=== PATIENT | female | born 1990 | race Caucasian/White ===

== ENCOUNTER 2018-03-11 12:50 | Inpatient (IN) | payer SELFPAY ==
[2018-03-11 14:08] VITALS: BMI 21.2
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
[2018-03-11] MEDS ORDERED: MAGNESIUM HYDROX 2400MG/30ML ORAL SUSPENSION 30 ML CUP PO PRN (15:08)
[2018-03-11] MEDS ORDERED: LOPERAMIDE HCL 2 MG CAPSULE PO PRN (15:08)
[2018-03-11] MEDS ORDERED: MENTHOL/PHENOL 1 EACH UD MM PRN (15:08)
[2018-03-11] MEDS ORDERED: P-EPHED 60MG/TRIPROLIDI 2.5MG TABLET PO PRN (15:08)
[2018-03-11] MEDS ORDERED: MAG HYDROX/AL HYDROX/SIMETH 30 ML UNIT-DOSE CUP PO PRN (15:08)
[2018-03-11] MEDS ORDERED: MAGNESIUM CITRATE 300 ML BOTTLE PO PRN (15:08)
[2018-03-11] MEDS ORDERED: ACETAMINOPHEN 325 MG TABLET (FP) PO PRN (15:08)
[2018-03-11] MEDS ORDERED: METHADONE HCL 10 MG TABLET (FOR DETOX USE ONLY) PO ONE ×2 (16:45→23:00)
[2018-03-11] MEDS: diazePAM 5 MG TABLET PO PRN ×2 (17:46→22:18)
[2018-03-11] MEDS: NICOTINE POLACRILEX 2 MG GUM BC PRN (19:06)
[2018-03-11] MEDS: ALBUTEROL SO4 2.5/IPRATROPIUM 0.5 INH SOL 3 ML VIAL.NEB. NEB PRN (20:27)
[2018-03-11] MEDS: THIAMINE HCL 100 MG TABLET (FP) PO SCH (22:17)
[2018-03-11] MEDS: CYCLOBENZAPRINE HCL 10 MG TABLET (FP) PO SCH (22:18)
[2018-03-11] MEDS: NAPROXEN 500 MG TABLET (FP) PO SCH (22:18)
[2018-03-12 00:32] LABS: URINE APPEARANCE SLCLOUDY; URINE BILIRUBIN NEGATIVE (<2.0 mg/dL); URINE COLOR AMBER; URINE GLUCOSE (UA) NEGATIVE (NEGATIVE); URINE KETONE TRACE (NEGATIVE); URINE LEUK ESTERASE NEGATIVE (NEGATIVE); URINE NITRITE NEGATIVE (NEGATIVE); URINE PROTEIN NEGATIVE (NEGATIVE)
[2018-03-12] MEDS: CYCLOBENZAPRINE HCL 10 MG TABLET (FP) PO SCH ×3 (05:30→22:20)
--- NOTE | 2018-03-12 08:37 | CONSULT ---
[facility] Psychiatric Consult - Data Date of interview: 03/12/18 Admission source: [facility] Identifying data: This is a 27 years old female, single, living with friend, unemployed, with no income, with no psychiatric hospitalization history, with history of heroin (nasal), cocaine, nicotine and marijuana dependence is here seeking detox for the first time. Patient reports withdrawal symptoms. Substance Abuse History: Smoking history: Current every day smoker. Have you smoked in the past 12 months: Yes. Aproximately how many cigarettes per day: 10. Hx Chewing Tobacco Use: No. Initiated information on smoking cessation: Yes. 'Breaking Loose' booklet given: 03/11/18. - Substance & Tx. History. Hx Alcohol Use: No. Hx Substance Use: Yes. Substance Use Type: Cocaine, Heroin, Marijuana. Hx Substance Use Treatment: No. - Substances Abused. heroin. Route: Inhalation. Frequency: Daily. Amount used: 1 gram. Age of first use: 26. Date of Last Use: 03/11/18. Cocaine. Route: Inhalation. Frequency: 1- 3 times last 30 days. Amount used: $20. Age of first use: 24. Date of Last Use: 03/09/18. Marijuana/Hashish. Route: Smoking. Frequency: 1-2 times per week. Amount used: $10 Medical History: Weight loss history, LBP, Sinusitis, Migraine Psychiatric History: Patient reports history of depression and anxiety, reports insomnia, reports taking prior to admission. Seroquel 100mg po qhs, denies suicidal, homicidal history, denies psychiatric hospitalization history as well. Physical/Sexual Abuse/Trauma History: Denies Additional Comment: Seroquel 100mg po qhs Mental Status Exam - Mental Status Exam Alert and Oriented to: Person Cognitive Function: Fair Patient Appearance: Unkempt Mood: Hopeful Affect: Mood Congruent Patient Behavior: Cooperative Speech Pattern: Appropriate Voice Loudness: Mildly Soft/Quiet Thought Process: Goal Oriented Thought Disorder: Being Controlled Hallucinations: Denies Suicidal Ideation: Denies Homicidal Ideation: Denies Insight/Judgement: Fair Sleep: Difficulty falling asleep Appetite: Weight loss Muscle strength/Tone: Moderate Hypotonicity Gait/Station: Shuffling Additional Comments: Seroquel 100mg po qhs Psychiatric Findings - Problem List ([place] 1, 2,3) (1) Cocaine dependence Current Visit: Yes Status: Acute Qualifiers: Substance use status: uncomplicated Qualified Code(s): F14.20 - Cocaine dependence, uncomplicated (2) Marijuana dependence Current Visit: Yes Status: Acute (3) Nicotine dependence Current Visit: Yes Status: Acute Qualifiers: Nicotine product type: cigarettes (4) Opioid dependence Current Visit: Yes Status: Acute Qualifiers: Substance use status: uncomplicated Qualified Code(s): F11.20 - Opioid dependence, uncomplicated (5) Weight loss Current Visit: Yes Status: Acute (6) Sciatica associated with disorder of lumbar spine Current Visit: Yes Status: Chronic - Initial Treatment Plan Initial Treatment Plan: Seroquel 100mg po qhs
[2018-03-12] MEDS ORDERED: METHADONE HCL 10 MG TABLET (FOR DETOX USE ONLY) PO ONE (10:00)
[2018-03-12] MEDS: PRENATAL VITAMINS W/ FOLIC ACID TABLET (FP) PO SCH (10:17)
[2018-03-12] MEDS: diazePAM 5 MG TABLET PO PRN ×3 (10:18→22:20)
[2018-03-12] MEDS: NICOTINE 14 MG/24 HOURS TOPICAL PATCH TD SCH (10:18)
[2018-03-12] MEDS: guaiFENesin/D-METHORPHAN HB 10 ML UNIT-DOSE CUPS PO PRN ×2 (10:18→22:27)
[2018-03-12] MEDS: NAPROXEN 500 MG TABLET (FP) PO SCH ×2 (10:18→22:20)
--- NOTE | 2018-03-12 11:29 | PN ---
BHS COWS - Scale Resting Pulse: 1= [place] 81-100 Sweatin=Flushed/Facial Moisture Restless Observation: 1= Difficult to Sit Still Pupil Size: 0= Normal to Room Light Bone or Joint Aches: 2= Severe Diffuse Aches Runny Nose/ Eye Tearin= Runny Nose/Eyes GI Upset > 30mins: 1= Stomach Cramp Tremor Observation of Outstretched Hands: 2= Slight Tremor Visible Yawning Observation: 2= >3x During Session Anxiety or Irritability: 2=Irritable/Anxious Goose Flesh Skin: 0=Smooth Skin COWS Score: 15 BHS Progress Note (SOAP) Subjective: i need my asthma medication sweats shakes irritable agitation body aches Objective: 03/12/18 11:37 Vital Signs Temperature 97.3 F L 03/12/18 09:38 Pulse Rate 95 H 03/12/18 09:38 Respiratory Rate 16 03/12/18 09:38 Blood Pressure 104/63 03/12/18 09:38 O2 Sat by Pulse Oximetry (%) Laboratory Tests 03/11/18 22:52 Urine Color Nicole Urine Appearance Slcloudy Urine pH 5.0 Ur Specific [place] 1.026 Urine Protein Negative Urine Glucose (UA) Negative Urine Ketones Trace H Urine Blood Negative Urine Nitrite Negative Urine Bilirubin Negative Urine Urobilinogen 2.0 H Ur Leukocyte Esterase Negative rest of labs pending aaox3 ambulating no acute distress Assessment: 03/12/18 11:38 withdrawal sx Plan: continue detox increase fluids labs pending
--- NOTE | 2018-03-12 11:29 | EKG ---
Test Reason : Blood Pressure : / mmHG Vent. Rate : 065 BPM Atrial Rate : 065 BPM P-R Int : 144 ms QRS Dur : 080 ms QT Int : 402 ms P-R-T Axes : 073 053 036 degrees QTc Int : 418 ms POOR DATA QUALITY, INTERPRETATION MAY BE ADVERSELY AFFECTED NORMAL SINUS RHYTHM NORMAL ECG NO PREVIOUS ECGS AVAILABLE Confirmed by JESSICA CANALES MD ([id number]) on 03/12/2018 11:29:00 AM Referred By: Confirmed By:JESSICA CANALES MD
[2018-03-12] MEDS: BUDESONIDE/FORMETEROL FUMARATE 160/4.5 mcg INHALER IH SCH ×2 (12:00→22:19)
[2018-03-12 14:19] LABS: HEMATOCRIT 38.7 % (32.4-45.2); HEMOGLOBIN 12.7 GM/dL (10.7-15.3); MCH 28.7 pg (25.7-33.7); MCHC 32.7 g/dl (32.0-36.0); MEAN CELL VOLUME 87.9 fl (80-96); PLATELET COUNT 219 K/MM3 (134-434); RBC 4.41 M/mm3 (3.60-5.2); RDW 13.1 % (11.6-15.6); WHITE BLOOD COUNT 8.8 K/mm3 (4.0-10.0)
[2018-03-12 14:57] LABS: ALBUMIN 3.8 g/dl (3.4-5.0); ALK PHOS 55 U/L (45-117); ANION GAP 7 MMOL/L (8-16); BILIRUBIN,TOTAL 0.6 mg/dL (0.2-1); BLOOD UREA NITROGEN 11 mg/dL (7-18); CALCIUM 8.9 mg/dL (8.5-10.1); CHLORIDE 104 mmol/L (98-107); CO2 28 mmol/L (21-32); CREATININE 0.8 mg/dL (0.55-1.3); GLUCOSE,RANDOM 132 mg/dL (74-106); SGOT/AST 15 U/L (15-37); SGPT/ALT 15 U/L (13-61); SODIUM 139 mmol/L (136-145); TOT PROT 6.5 g/dl (6.4-8.2)
[2018-03-12] MEDS: THIAMINE HCL 100 MG TABLET (FP) PO SCH (22:20)
[2018-03-12] MEDS: QUEtiapine FUMARATE 100 MG TABLET (FP) PO SCH (22:20)
[2018-03-13] MEDS: ALBUTEROL SO4 2.5/IPRATROPIUM 0.5 INH SOL 3 ML VIAL.NEB. NEB PRN (04:04)
[2018-03-13] MEDS: diazePAM 5 MG TABLET PO PRN ×4 (04:24→22:18)
[2018-03-13] MEDS: CYCLOBENZAPRINE HCL 10 MG TABLET (FP) PO SCH ×3 (06:28→22:18)
[2018-03-13] MEDS ORDERED: METHADONE HCL 5 MG TABLET (FOR DETOX USE ONLY) PO ONE (10:00)
[2018-03-13] MEDS: BUDESONIDE/FORMETEROL FUMARATE 160/4.5 mcg INHALER IH SCH ×2 (10:25→22:17)
[2018-03-13] MEDS: NAPROXEN 500 MG TABLET (FP) PO SCH (10:25)
[2018-03-13] MEDS: PRENATAL VITAMINS W/ FOLIC ACID TABLET (FP) PO SCH (10:25)
[2018-03-13] MEDS: NICOTINE 14 MG/24 HOURS TOPICAL PATCH TD SCH (10:26)
[2018-03-13] MEDS: guaiFENesin/D-METHORPHAN HB 10 ML UNIT-DOSE CUPS PO PRN (10:26)
--- NOTE | 2018-03-13 11:28 | PN ---
BHS COWS - Scale Resting Pulse: 1= [place] 81-100 Sweatin=Flushed/Facial Moisture Restless Observation: 1= Difficult to Sit Still Pupil Size: 0= Normal to Room Light Bone or Joint Aches: 2= Severe Diffuse Aches Runny Nose/ Eye Tearin= Nasal Congestion GI Upset > 30mins: 0= None Tremor Observation of Outstretched Hands: 2= Slight Tremor Visible Yawning Observation: 1= 1-2x During Session Anxiety or Irritability: 2=Irritable/Anxious Goose Flesh Skin: 0=Smooth Skin COWS Score: 12 BHS Progress Note (SOAP) Subjective: chronic back pain sweats irritable agitation body aches Objective: 03/13/18 11:27 Vital Signs Temperature 97.7 F 03/13/18 09:30 Pulse Rate 82 03/13/18 09:30 Respiratory Rate 18 03/13/18 09:30 Blood Pressure 114/74 03/13/18 09:30 O2 Sat by Pulse Oximetry (%) Laboratory Tests 03/11/18 03/12/18 03/12/18 22:52 07:00 07:00 WBC 8.8 RBC 4.41 Hgb 12.7 Hct 38.7 MCV 87.9 MCH 28.7 MCHC 32.7 RDW 13.1 Plt Count 219 MPV 8.0 Sodium 139 Potassium 4.0 Chloride 104 Carbon Dioxide 28 Anion Gap 7 L BUN 11 Creatinine 0.8 Creat Clearance w eGFR > 60 Random Glucose 132 H Calcium 8.9 Total Bilirubin 0.6 AST 15 ALT 15 Alkaline Phosphatase 55 Total Protein 6.5 Albumin 3.8 Urine Color Nicole Urine Appearance Slcloudy Urine pH 5.0 Ur Specific [place] 1.026 Urine Protein Negative Urine Glucose (UA) Negative Urine Ketones Trace H Urine Blood Negative Urine Nitrite Negative Urine Bilirubin Negative Urine Urobilinogen 2.0 H Ur Leukocyte Esterase Negative RPR Titer HIV 1&2 Antibody Screen HIV P24 Antigen 03/12/18 03/12/18 07:00 07:00 WBC RBC Hgb Hct MCV MCH MCHC RDW Plt Count MPV Sodium Potassium Chloride Carbon Dioxide Anion Gap BUN Creatinine Creat Clearance w eGFR Random Glucose Calcium Total Bilirubin AST ALT Alkaline Phosphatase Total Protein Albumin Urine Color Urine Appearance Urine pH Ur Specific [place] Urine Protein Urine Glucose (UA) Urine Ketones Urine Blood Urine Nitrite Urine Bilirubin Urine Urobilinogen Ur Leukocyte Esterase RPR Titer Nonreactive HIV 1&2 Antibody Screen Negative HIV P24 Antigen Negative aaox3 ambulating no acute distress Assessment: 03/13/18 11:27 withdrawal sx Plan: continue detox increase fluids motrin 800mg tid prn
[2018-03-13] MEDS: hydrOXYzine PAMOATE 50 MG CAPSULE (FP) PO PRN ×3 (12:33→22:18)
--- NOTE | 2018-03-13 15:33 | PN ---
Psychiatric Progress Note Vital Signs: Vital Signs Period Temp Pulse Resp BP Sys/Lozoya Pulse Ox Last 24 Hr 97.0 F-98.1 F 74-91 16-19 102-122/61-74 Date of Session: 03/13/18 Chief Complaint:: Anxiety HPI: Patient reports anxiety and asking for insect control aide. Current Medications: Active Medications Generic Name Dose Route Start Last Admin Trade Name Freq PRN Reason Stop Dose Admin Acetaminophen 650 mg 03/11/18 15:08 Tylenol - PO Q4H PRN FEVER Al Hydroxide/Mg Hydroxide 30 ml 03/11/18 15:08 Mylanta Oral Suspension - PO Q6H PRN DYSPEPSIA Albuterol Sulfate 2 puff 03/12/18 10:50 Ventolin Hfa Inhaler - IH Q4H PRN WHEEZING Albuterol/Ipratropium 1 amp 03/11/18 15:24 03/13/18 04:04 Duoneb - NEB 1 amp Q6H PRN Administration SHORTNESS OF BREATH Budesonide/Formoterol Fumarate 1 puff 03/12/18 10:50 03/13/18 10:25 Symbicort 160/4.5mcg - IH 1 puff BID RADHA Administration Cyclobenzaprine HCl 10 mg 03/11/18 22:00 03/13/18 13:32 Flexeril - PO 10 mg TID RADHA Administration Diazepam 10 mg 03/11/18 15:08 03/13/18 14:42 Valium - PO 03/14/18 15:07 10 mg Q4H PRN Administration WITHDRAWAL(CONT SUBST) Eucalyptus/Menthol/Phenol/Sorbitol 1 each 03/11/18 15:08 Cepastat Lozenge - MM Q4H PRN SORE THROAT Guaifenesin 10 ml 03/11/18 15:08 03/13/18 10:26 Robitussin Dm - PO 10 ml Q6H PRN Administration COUGH Hydroxyzine Pamoate 50 mg 03/13/18 12:05 03/13/18 12:33 Vistaril - PO 50 mg Q4H PRN Administration AGITATION Ibuprofen 800 mg 03/13/18 11:25 Motrin - PO Q8H PRN PAIN LEVEL 7 - 10 Loperamide HCl 4 mg 03/11/18 15:08 Imodium - PO Q6H PRN DIARRHEA Magnesium Citrate 300 ml 03/11/18 15:08 Citroma - PO Q48H PRN CONSTIPATION Magnesium Hydroxide 30 ml 03/11/18 15:08 Milk Of Magnesia - PO DAILY PRN CONSTIPATION Melatonin 5 mg 03/11/18 22:00 Melatonin PO HS PRN INSOMNIA Methadone HCl 5 mg 03/16/18 06:00 Dolophine - PO 03/16/18 06:01 ONCE@0600 ONE Methadone HCl 15 mg 03/14/18 10:00 Dolophine - PO 03/14/18 10:01 ONCE ONE Methadone HCl 10 mg 03/15/18 10:00 Dolophine - PO 03/15/18 10:01 ONCE ONE Nicotine 14 mg 03/12/18 10:00 03/13/18 10:26 Nicoderm Patch - TD 14 mg DAILY RADHA Administration Nicotine Polacrilex 2 mg 03/11/18 15:08 03/11/18 19:06 Nicorette Gum - BC 2 mg Q2H PRN Administration NICOTINE REPLACEMENT RX Multivit/Folic Acid/Iron 1 tab 03/12/18 10:00 03/13/18 10:25 Vitamins (Sjr) - PO 1 tab DAILY RADHA Administration Pseudoephedrine/Triprolidine 1 combo 03/11/18 15:08 Actifed - PO TID PRN NASAL CONGESTION Quetiapine Fumarate 100 mg 03/12/18 22:00 03/12/18 22:20 Seroquel - PO 100 mg HS RADHA Administration Thiamine HCl 100 mg 03/11/18 22:00 03/12/18 22:20 Vitamin B1 - PO 100 mg HS RADHA Administration Medication(s) Change(s): Vistaril 50mg po prn q4 for anxietyand agitation. Mental Status Exam - Mental Status Exam Alert and Oriented to: Place, Person Cognitive Function: Fair Patient Appearance: Unkempt Mood: Anxious Affect: Mood Congruent Patient Behavior: Talkative, Cooperative Speech Pattern: Appropriate Voice Loudness: Normal Thought Process: Goal Oriented Thought Disorder: Being Controlled Hallucinations: Denies Suicidal Ideation: Denies Homicidal Ideation: Denies Insight/Judgement: Fair Sleep: Difficulty falling asleep Appetite: Weight loss Muscle strength/Tone: Normal Gait/Station: Normal Additional Comments: Vistaril 50mg po prn q4 for anxietyand agitation. Psychiatric Treatment Plan - Problem List (1) Cocaine dependence Current Visit: Yes Qualifiers: Substance use status: uncomplicated Qualified Code(s): F14.20 - Cocaine dependence, uncomplicated (2) Marijuana dependence Current Visit: Yes (3) Nicotine dependence Current Visit: Yes Qualifiers: Nicotine product type: cigarettes (4) Opioid dependence Current Visit: Yes Qualifiers: Substance use status: uncomplicated Qualified Code(s): F11.20 - Opioid dependence, uncomplicated (5) Weight loss Current Visit: Yes (6) Sciatica associated with disorder of lumbar spine Current Visit: Yes Initial treatment plan: Vistaril 50mg po prn q4 for anxietyand agitation.
[2018-03-13] MEDS: THIAMINE HCL 100 MG TABLET (FP) PO SCH (22:17)
[2018-03-13] MEDS: QUEtiapine FUMARATE 100 MG TABLET (FP) PO SCH (22:18)
[2018-03-13] MEDS: IBUPROFEN 400 MG TABLET (FP) PO PRN (22:18)
[2018-03-14] MEDS: diazePAM 5 MG TABLET PO PRN ×3 (02:31→15:02)
[2018-03-14] MEDS: CYCLOBENZAPRINE HCL 10 MG TABLET (FP) PO SCH ×3 (05:31→22:30)
[2018-03-14] MEDS: ALBUTEROL SO4 8 GM HFA INHALER IH PRN (06:30)
[2018-03-14] MEDS ORDERED: METHADONE HCL 5 MG TABLET (FOR DETOX USE ONLY) PO ONE (10:00)
[2018-03-14] MEDS: BUDESONIDE/FORMETEROL FUMARATE 160/4.5 mcg INHALER IH SCH ×2 (10:16→22:31)
[2018-03-14] MEDS: PRENATAL VITAMINS W/ FOLIC ACID TABLET (FP) PO SCH (10:16)
[2018-03-14] MEDS: NICOTINE 14 MG/24 HOURS TOPICAL PATCH TD SCH (10:16)
[2018-03-14] MEDS ORDERED: LIDOCAINE 5% TOPICAL PATCH TP ONE (11:16)
--- NOTE | 2018-03-14 11:19 | PN ---
BHS Progress Note (SOAP) Subjective: low back pain sweats body aches Objective: 03/14/18 11:17 Vital Signs Temperature 97.2 F L 03/14/18 09:46 Pulse Rate 92 H 03/14/18 09:46 Respiratory Rate 18 03/14/18 09:46 Blood Pressure 123/72 03/14/18 09:46 O2 Sat by Pulse Oximetry (%) aaox3 ambulating no acute distress Assessment: 03/14/18 11:24 withdrawal sx Plan: continue detox increase fluids lidocaine patch continue with 800mg motrin prn
[2018-03-14] MEDS: hydrOXYzine PAMOATE 50 MG CAPSULE (FP) PO PRN ×2 (17:15→21:35)
[2018-03-14] MEDS: NICOTINE POLACRILEX 2 MG GUM BC PRN (20:31)
[2018-03-14] MEDS ORDERED: LIDOCAINE PATCH REMOVAL MC SCH (22:00)
[2018-03-14] MEDS: THIAMINE HCL 100 MG TABLET (FP) PO SCH (22:30)
[2018-03-14] MEDS: QUEtiapine FUMARATE 100 MG TABLET (FP) PO SCH (22:30)
[2018-03-14] MEDS: MELATONIN 5 MG TABLETS PO PRN (22:31)
[2018-03-15] MEDS: CYCLOBENZAPRINE HCL 10 MG TABLET (FP) PO SCH ×3 (05:29→22:11)
[2018-03-15] MEDS: ALBUTEROL SO4 8 GM HFA INHALER IH PRN ×2 (07:48→22:12)
[2018-03-15] MEDS: hydrOXYzine PAMOATE 50 MG CAPSULE (FP) PO PRN ×4 (07:50→20:32)
[2018-03-15] MEDS ORDERED: METHADONE HCL 10 MG TABLET (FOR DETOX USE ONLY) PO ONE (10:00)
[2018-03-15] MEDS ORDERED: LIDOCAINE 5% TOPICAL PATCH TP SCH (10:00)
[2018-03-15] MEDS: PRENATAL VITAMINS W/ FOLIC ACID TABLET (FP) PO SCH (10:16)
[2018-03-15] MEDS: BUDESONIDE/FORMETEROL FUMARATE 160/4.5 mcg INHALER IH SCH ×2 (10:17→22:10)
[2018-03-15] MEDS: NICOTINE 14 MG/24 HOURS TOPICAL PATCH TD SCH (10:17)
[2018-03-15] MEDS: IBUPROFEN 400 MG TABLET (FP) PO PRN ×2 (14:42→22:12)
--- NOTE | 2018-03-15 15:16 | PN ---
S Progress Note (SOAP) Subjective: C/o mild anxiety but otherwise feeling better. Objective: A&O x 3. Mild tremors of hands noted.Lungs CTA. Abd S/NT/BS+. Vital Signs 03/15/18 03/15/18 03/15/18 07:29 09:34 14:10 Temperature 97.9 F 97.7 F 97.9 F Pulse Rate 79 99 H 98 H Respiratory 16 16 18 Rate Blood Pressure 108/66 112/73 124/71 Lab Results WBC 8.8 K/mm3 (4.0-10.0) 03/12/18 07:00 RBC 4.41 M/mm3 (3.60-5.2) 03/12/18 07:00 Hgb 12.7 GM/dL (10.7-15.3) 03/12/18 07:00 Hct 38.7 % (32.4-45.2) 03/12/18 07:00 MCV 87.9 fl (80-96) 03/12/18 07:00 MCHC 32.7 g/dl (32.0-36.0) 03/12/18 07:00 RDW 13.1 % (11.6-15.6) 03/12/18 07:00 Plt Count 219 K/MM3 (134-434) 03/12/18 07:00 Sodium 139 mmol/L (136-145) 03/12/18 07:00 Potassium 4.0 mmol/L (3.5-5.1) 03/12/18 07:00 Chloride 104 mmol/L (98-107) 03/12/18 07:00 Carbon Dioxide 28 mmol/L (21-32) 03/12/18 07:00 Anion Gap 7 MMOL/L (8-16) L 03/12/18 07:00 BUN 11 mg/dL (7-18) 03/12/18 07:00 Creatinine 0.8 mg/dL (0.55-1.3) 03/12/18 07:00 Random Glucose 132 mg/dL (74-106) H 03/12/18 07:00 Calcium 8.9 mg/dL (8.5-10.1) 03/12/18 07:00 Labs reviewed. Assessment: Resolving withdrawal symptoms. Plan: Continue detox.
--- NOTE | 2018-03-15 15:25 | PN ---
BHS Progress Note Note: C/o increased anxiety. C/0 (L) shoulder pain at scapula area. Requesting additional lidocaine patch for (L) shoulder area. FROM (L) shoulder w/o crepitus. No increased erythema or swelling. Plan: Lidocaine patch.
[2018-03-15] MEDS ORDERED: LIDOCAINE PATCH REMOVAL MC SCH ×2 (22:00)
[2018-03-15] MEDS: THIAMINE HCL 100 MG TABLET (FP) PO SCH (22:11)
[2018-03-15] MEDS: QUEtiapine FUMARATE 100 MG TABLET (FP) PO SCH (22:11)
[2018-03-15] MEDS: MELATONIN 5 MG TABLETS PO PRN (22:12)
[2018-03-16] MEDS: hydrOXYzine PAMOATE 50 MG CAPSULE (FP) PO PRN ×2 (01:44→07:38)
[2018-03-16] MEDS: CYCLOBENZAPRINE HCL 10 MG TABLET (FP) PO SCH (05:46)
[2018-03-16] MEDS ORDERED: METHADONE HCL 5 MG TABLET (FOR DETOX USE ONLY) PO ONE (06:00)
[2018-03-16] MEDS: PRENATAL VITAMINS W/ FOLIC ACID TABLET (FP) PO SCH (09:45)
[2018-03-16] MEDS: BUDESONIDE/FORMETEROL FUMARATE 160/4.5 mcg INHALER IH SCH (09:46)
[2018-03-16] MEDS: NICOTINE 14 MG/24 HOURS TOPICAL PATCH TD SCH (09:48)
--- NOTE | 2018-03-16 09:56 | DS ---
[facility] Detox Discharge Summary Admission Date: 03/11/18 Discharge Date: 03/16/18 - History Present History: Opioid Dependence Additional Comments: 27 years old female admitted on 03/11/18 for opiate withdrawal sx completed opiate detox regimen tolerated well denies opiate withdrawal sx alert oriented x 3 no acute distress aftercare revelation - Physical Exam Results Vital Signs: Vital Signs Temperature 97.7 F 03/16/18 07:05 Pulse Rate 82 03/16/18 07:05 Respiratory Rate 16 03/16/18 07:05 Blood Pressure 111/66 03/16/18 07:05 O2 Sat by Pulse Oximetry (%) Pertinent Admission Physical Exam Findings: opiate withdrawl sx Vital Signs Temperature 97.3 F L 03/16/18 09:59 Pulse Rate 101 H 03/16/18 09:59 Respiratory Rate 16 03/16/18 09:59 Blood Pressure 153/84 03/16/18 09:59 O2 Sat by Pulse Oximetry (%) Laboratory Last Values WBC 8.8 K/mm3 (4.0-10.0) 03/12/18 07:00 RBC 4.41 M/mm3 (3.60-5.2) 03/12/18 07:00 Hgb 12.7 GM/dL (10.7-15.3) 03/12/18 07:00 Hct 38.7 % (32.4-45.2) 03/12/18 07:00 MCV 87.9 fl (80-96) 03/12/18 07:00 MCH 28.7 pg (25.7-33.7) 03/12/18 07:00 MCHC 32.7 g/dl (32.0-36.0) 03/12/18 07:00 RDW 13.1 % (11.6-15.6) 03/12/18 07:00 Plt Count 219 K/MM3 (134-434) 03/12/18 07:00 MPV 8.0 fl (7.5-11.1) 03/12/18 07:00 Sodium 139 mmol/L (136-145) 03/12/18 07:00 Potassium 4.0 mmol/L (3.5-5.1) 03/12/18 07:00 Chloride 104 mmol/L (98-107) 03/12/18 07:00 Carbon Dioxide 28 mmol/L (21-32) 03/12/18 07:00 Anion Gap 7 MMOL/L (8-16) L 03/12/18 07:00 BUN 11 mg/dL (7-18) 03/12/18 07:00 Creatinine 0.8 mg/dL (0.55-1.3) 03/12/18 07:00 Creat Clearance w eGFR > 60 (>60) 03/12/18 07:00 Random Glucose 132 mg/dL (74-106) H 03/12/18 07:00 Calcium 8.9 mg/dL (8.5-10.1) 03/12/18 07:00 Total Bilirubin 0.6 mg/dL (0.2-1) 03/12/18 07:00 AST 15 U/L (15-37) 03/12/18 07:00 ALT 15 U/L (13-61) 03/12/18 07:00 Alkaline Phosphatase 55 U/L (45-117) 03/12/18 07:00 Total Protein 6.5 g/dl (6.4-8.2) 03/12/18 07:00 Albumin 3.8 g/dl (3.4-5.0) 03/12/18 07:00 Urine Color Nicole 03/11/18 22:52 Urine Appearance Slcloudy 03/11/18 22:52 Urine pH 5.0 (5.0-8.0) 03/11/18 22:52 Ur Specific [place] 1.026 (1.010-1.035) 03/11/18 22:52 Urine Protein Negative (NEGATIVE) 03/11/18 22:52 Urine Glucose (UA) Negative (NEGATIVE) 03/11/18 22:52 Urine Ketones Trace (NEGATIVE) H 03/11/18 22:52 Urine Blood Negative (NEGATIVE) 03/11/18 22:52 Urine Nitrite Negative (NEGATIVE) 03/11/18 22:52 Urine Bilirubin Negative (<2.0 mg/dL) 03/11/18 22:52 Urine Urobilinogen 2.0 mg/dL (0.2-1.0) H 03/11/18 22:52 Ur Leukocyte Esterase Negative (NEGATIVE) 03/11/18 22:52 RPR Titer Nonreactive (NONREACTIVE) 03/12/18 07:00 HIV 1&2 Antibody Screen Negative 03/12/18 07:00 HIV P24 Antigen Negative 03/12/18 07:00 lab noted - Treatment Hospital Course: Detox Protocol Followed, Detoxed Safely, Responded well, Discharged Condition Good, Rehab Referral Accepted Patient has Accepted a Rehab Referral to: [facility] - Medication Discharge Medications: Ambulatory Orders Ergocalciferol [Vitamin D2] 50,000 unit PO WEEKLY 03/11/18 Quetiapine Fumarate [Seroquel] 100 mg PO HS #30 tablet 03/12/18 Albuterol Sulfate Inhaler - [Ventolin HFA Inhaler -] 2 puff IH Q4H PRN #1 inhaler 03/16/18 Budesonide/Formeterol Fumarate [SYMBICORT 160/4.5mcg -] 1 inh PO BID #1 inhaler 03/16/18 - Diagnosis (1) Nicotine dependence Status: Acute Qualifiers: Nicotine product type: cigarettes Substance use status: in withdrawal Qualified Code(s): F17.213 - Nicotine dependence, cigarettes, with withdrawal (2) Opioid dependence Status: Acute Qualifiers: Substance use status: uncomplicated Qualified Code(s): F11.20 - Opioid dependence, uncomplicated (3) Weight loss Status: Acute - AMA Did Patient Leave Against Medical Advice: No
[2018-03-16 09:59] VITALS: BP 153/84; PULSE 101; TEMP 97.3
[2018-03-16] MEDS ORDERED: LIDOCAINE 5% TOPICAL PATCH TP SCH ×4 (10:00)
== END 2018-03-16 10:00 | disposition home or self-care (01) | DRG 773 ==
LOC: YASAS 12:50 → Y6N 15:44
PROC: HZ2ZZZZ Detoxification Services for Substance Abuse Treatment (ICD-10-PCS; principal; 2018-03-11)
DX: F11.23 Opioid dependence with withdrawal (principal); F14.20 Cocaine dependence, uncomplicated; F12.20 Cannabis dependence, uncomplicated; F17.213 Nicotine dependence, cigarettes, with withdrawal; F32.9 Major depressive disorder, single episode, unspecified; M54.40 Lumbago with sciatica, unspecified side; R63.4 Abnormal weight loss; Z68.21 Body mass index [BMI] 21.0-21.9, adult
CPT/HCPCS: 36415; 80053; 81003; 85027; 86593; 87389; 93005; 93010; 94640